=== PATIENT | female | born 1990 | race African-American/Black ===

== ENCOUNTER 2019-11-28 18:21 | Emergency (ER) | payer BC ==
[~2019-11-28] VITALS: Ht 165.1 cm; Wt 62.6 kg
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
[2019-11-28 20:26] VITALS: BP 127/82
== END 2019-11-28 20:26 | disposition home or self-care (01) ==
LOC: ER 18:21
DX: S09.8XXA Other specified injuries of head, initial encounter (principal); R07.81 Pleurodynia; M25.522 Pain in left elbow; Z91.013 Allergy to seafood; Y04.0XXA Assault by unarmed brawl or fight, initial encounter; Y93.89 Activity, other specified; Y92.098 Other place in other non-institutional residence as the place of occurrence of the external cause; Y99.8 Other external cause status